=== PATIENT | female | born 1975 | race American Indian/Alaskan Native ===

== ENCOUNTER 2018-11-01 23:52 | Emergency (ER) | payer SELFPAY ==
[2018-11-02] MEDS ORDERED: ASPIRIN PO ONE (00:38)
--- NOTE | 2018-11-02 01:12 | XRay Report ---
CHEST 1 VIEW INDICATION / CLINICAL INFORMATION: Chest Pain. COMPARISON: None available. FINDINGS: SUPPORT DEVICES: None. HEART / MEDIASTINUM: No significant abnormality. LUNGS / PLEURA: No significant pulmonary or pleural abnormality. No pneumothorax. ADDITIONAL FINDINGS: Mild thoracolumbar scoliosis IMPRESSION: No acute pulmonary or pleural abnormality. Signer Name: Trent Martinez MD FACR Signed: 11/02/2018 1:08 AM Workstation Name: [id number]
[2018-11-02 01:31] VITALS: BP 108/69
[2018-11-02 01:32] LABS: Basophils % (Auto) 0.6 % (0.0-1.8); Eosinophils # (Auto) 0.3 K/mm3 (0.0-0.4); Eosinophils % (Auto) 5.4 % (0.0-4.3); Hematocrit 34.1 % (30.3-42.9); Hemoglobin 11.2 gm/dl (10.1-14.3); Lymphocytes # (Auto) 1.9 K/mm3 (1.2-5.4); Lymphocytes % (Auto) 35.7 % (13.4-35.0); Mean Corpuscular HGB Conc 33 % (30-34); Mean Corpuscular Volume 84 fl (79-97); Monocytes # (Auto) 0.6 K/mm3 (0.0-0.8); Monocytes % (Auto) 11.9 % (0.0-7.3); Platelet Count 351 K/mm3 (140-440); Red Blood Count 4.05 M/mm3 (3.65-5.03); Red Cell Distribution Width 14.1 % (13.2-15.2)
[2018-11-02] MEDS ORDERED: SOLU-Medrol IM ONE (01:36)
--- NOTE | 2018-11-02 01:36 | Emergency Department Report ---
ED Chest Pain HPI - General Chief Complaint: Chest Pain Stated Complaint: SOB/RT SIDE SHOULDER PAIN Time Seen by Provider: 11/02/18 01:27 Source: patient Mode of arrival: Ambulatory Limitations: No Limitations - History of Present Illness Initial Comments: Patient is 43 years old female with history of asthma. Patient presented to the ER complaining of left-sided chest pain, sharp in nature associated with shortness of breath and difficulty breathing sometimes. Patient stated that her symptoms started with cough congestion and runny nose. Patient denied any fever or chills. MD Complaint: chest pain -: days(s) (5) Onset: during rest Pain Location: left chest Severity scale (0 -10): 0 Consistency: intermittent - Related Data Allergies Allergy/AdvReac Type Severity Reaction Status Date / Time No Known Allergies Allergy Unverified 11/01/18 23:54 Heart Score - HEART Score History: Slightly suspicious EKG: Non-specific Age: < 45 Risk factors: No known risk factors Troponin: < normal limit HEART Score: 1 - Critical Actions Critical Actions: 0-3 pts:0.9-1.7%risk of adverse cardiac event.Candidate for discharge ED Review of Systems ROS: Stated complaint: SOB/RT SIDE SHOULDER PAIN Other details as noted in HPI Comment: All other systems reviewed and negative Constitutional: denies: chills, fever Respiratory: cough, orthopnea, shortness of breath, SOB at rest, wheezing Cardiovascular: chest pain. denies: palpitations, dyspnea on exertion Gastrointestinal: denies: abdominal pain, nausea, vomiting Neurological: denies: headache, weakness ED Past Medical Hx - Past Medical History Previous Medical History?: Yes Hx Asthma: Yes - Surgical History Past Surgical History?: Yes Additional Surgical History: Tubal Ligation - Social History Smoking Status: Current Every Day Smoker Substance Use Type: None ED Physical Exam - General Limitations: No Limitations ED Course Vital Signs 11/02/18 11/02/18 00:34 01:05 Temperature 98.2 F 98.3 F Pulse Rate 73 60 Respiratory 18 14 Rate Blood Pressure 116/76 Blood Pressure 108/69 [Right] O2 Sat by Pulse 100 100 Oximetry ED Medical Decision Making - Lab Data Result diagrams: 11/02/18 00:53 11/02/18 00:57 - EKG Data -: EKG Interpreted by Ga EKG shows normal: sinus rhythm Rate: normal - EKG Data Interpretation: no acute changes - Radiology Data Radiology results: report reviewed Chest x-ray is unremarkable. - Medical Decision Making Patient is 43 years old female with history of asthma. Patient presented to the ER complaining of left-sided chest pain, sharp in nature associated with shortness of breath and difficulty breathing sometimes. Patient stated that her symptoms started with cough congestion and runny nose. Patient denied any fever or chills. Patient EKG is negative for acute finding. Labs reviewed that is unremarkable including a negative troponin. Chest x-ray is unremarkable. Patient stated that she does not have any chest pain now. Patient's symptoms most likely related to bronchitis with possible costochondritis. However patient advised to follow-up as her primary care physician for further workup and management and a dvised to return to the ER if symptoms are not improved. Critical care attestation.: If time is entered above; I have spent that time in minutes in the direct care of this critically ill patient, excluding procedure time. ED Disposition Clinical Impression: Chest pain, Bronchitis Disposition: DC- TO HOME OR SELFCARE Is pt being admited?: No Condition: Stable Instructions: Chest Pain (ED), Acute Bronchitis (ED) Referrals: MARY ELLEN BARBER MD [Primary Care Provider] - 3-5 Days
[2018-11-02 02:05] LABS: BUN/Creatinine Ratio 11; Blood Urea Nitrogen 8 mg/dL (7-17); Calcium 9.2 mg/dL (8.4-10.2); Hemolysis Index 9
== END 2018-11-02 02:15 | disposition home or self-care (01) ==
LOC: ED 23:52
DX: R07.89 Other chest pain (principal); J40 Bronchitis, not specified as acute or chronic; J45.909 Unspecified asthma, uncomplicated; F17.200 Nicotine dependence, unspecified, uncomplicated; Z98.51 Tubal ligation status
CPT/HCPCS: 36415; 71045; 80048; 84484; 85025; 93005; 93010; 96372; 99284; J2930